=== PATIENT | female | born 1970 | race Caucasian/White ===

== ENCOUNTER 2019-07-12 05:48 | Inpatient (IN) | payer OTHER, MEDICAID ==
[2019-06-27 10:15] LABS: URINE BILIRUBIN NEGATIVE (Negative); URINE BLOOD NEGATIVE (Negative); URINE CLARITY CLEAR; URINE COLOR YELLOW; URINE GLUCOSE-RANDOM* NEGATIVE (Negative); URINE KETONES NEGATIVE (Negative); URINE LEUKOCYTES-REFLEX NEGATIVE (Negative); URINE NITRITE-REFLEX NEGATIVE (Negative); URINE PROTEIN (DIPSTICK) NEGATIVE (Negative); URINE UROBILINOGEN 0.2 E.U./dl (0.2-1.0)
[2019-06-27 10:28] LABS: HEMATOCRIT 40.4 % (37.0-47.0); HEMOGLOBIN 13.5 gm/dL (12.0-15.0); MCH 32.4 pg (26.0-34.0); MCHC 33.4 g/dL (28.0-37.0); MCV 97.1 fL (80.0-100.0); RBC 4.16 mil/uL (4.20-5.00); RDW 12.7 % (10.5-14.5); WBC 9.4 thou/uL (4.0-11.0)
[2019-06-27 10:35] LABS: ALBUMIN 3.6 g/dL (3.4-5.0); CREATININE 0.9 mg/dL (0.6-1.0)
[2019-06-27 10:38] LABS: PROTIME 9.5 Seconds (9.3-11.4)
--- NOTE | 2019-06-27 16:38 | EKG ---
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1970 Requested By: Yared Ludwig Order Number: [id number] MD: Shane Rosado Measurements Intervals [place] Rate: 78 P: 31 HI: 135 QRS: 2 QRSD: 102 T: 45 QT: 382 QTc: 436 Interpretive Statements Sinus rhythm Normal tracing Baseline wander in lead(s) II,III,aVF No previous ECG available for comparison Electronically Signed On 06-27-2019 16:37:37 [employer] by Shane Rosado [email or web address] <ELECTRONICALLY SIGNED> By: Shane Rosado MD, [facility] 06/27/19 1637 1034 1034 Shane Rosado MD, [facility] /EPI
[~2019-07-12] VITALS: Ht 162.6 cm; Wt 120.7 kg
[~2019-07-12 05:48] MED LIST: ANTI-DIARRHEAL2 MG PO; HYDROCODON-ACE1 EAC8 PO; LIPITOR 20 MG T20 M1 PO; LISINOPRIL2.5 MG PO; OMEPRAZOLE40 MG PO; SPIRIVA18 MCG INH; SYMBICORT160 MCG/4. INH; VENTOLIN HFA 1818 GM INH; VRAYLAR1.5 MG PO; XANAX1 MG PO; XANAX2 MG PO
[2019-07-12 07:30] VITALS: BP 144/84
--- NOTE | 2019-07-12 19:12 | NUR ---
ASSUMED CARE OF THE PT AT 1145. PT IS IN ALOT OF PAIN, APIN MEDS ADJUSTED, CALLED DOCTOR, SEE EMAR. PT USED BEDPAN. HEMOVAC DRAINED 350ML. R UPPER ARM IV INFILTRATED, L FOREARM IV DRY AND INTACT. PT ON 3.0L O2 NC. FALL PRECAUTIONS IN PLACE, BEDIN LOWEST POSITION AND CALL LIGHT IS WITHIN REACH. PT IS ON REG DIET. REPORT GIVEN TO NOC NURSE.
[2019-07-12 20:00] VITALS: BP 138/71
--- NOTE | 2019-07-12 20:10 | NUR ---
1900 ASSUMED CARE OF PT AFTER BEDSIDE REPORT 2000 ASSESSMENT COMPLETED, CAP REFILL IN BILAT TOES<2 SEC, WARM TO TOUCH SENSATION AND MOVEMENT INTACT PEDAL PULSES PALPABLE BILATERALLY, PT DOES NOT APPEAR ANXIOS, STATES MORPHINE IS WORKING FOR PAIN. WANTS TO REST TONIGHT AND GET UP TO BEDSIDE COMMODE FALL PRECAUTIONS IN PLACE, WILL CONTINUE TO MONITOR
[2019-07-12 21:00] VITALS: BP 120/64
[2019-07-12 22:00] VITALS: BP 109/70
[2019-07-12 23:00] VITALS: BP 120/64
[2019-07-13 01:00] VITALS: BP 134/74
[2019-07-13 04:02] VITALS: BP 136/87
[2019-07-13 06:07] LABS: HEMATOCRIT 29.8 % (37.0-47.0); MCH 32.8 pg (26.0-34.0); MCHC 33.7 g/dL (28.0-37.0); MCV 97.6 fL (80.0-100.0); RBC 3.05 mil/uL (4.20-5.00); RDW 12.3 % (10.5-14.5); WBC 12.8 thou/uL (4.0-11.0)
[2019-07-13 08:28] VITALS: BP 150/86
--- NOTE | 2019-07-13 15:53 | O ---
[facility] [place] [address] OPERATIVE REPORT Name: ANAY MCCOY Room #: 448-P ADM IN M.R.#: [id number] Admission: 07/12/19 Attend Phys: Yared Ludwig MD Discharge: Date of : 68 Report #: [id number] THIS REPORT FOR: cc: FAM - Family physician unknown FAM - Family physician unknown Yared Ludwig MD ~ CC: Yared Ludwig [facility] unknown ELLI GRAY DATE OF SERVICE: 07/12/2019 PREOPERATIVE DIAGNOSIS: Degenerative arthritis, right knee. POSTOPERATIVE DIAGNOSIS: Degenerative arthritis, right knee. PROCEDURE: Right total knee arthroplasty. SURGEON: Yared Ludwig MD INDICATIONS: This heavy, but otherwise healthy 48-year-old female has progressive bilateral knee pain, much worse on the right side. Clinical findings and x-rays reveal moderate degenerative arthritis. We discussed treatment options including medical management or injections or arthroscopic debridement, given her fairly young age. However, she states her symptoms are severe and unresponsive to conservative measures and she prefers to go ahead with total knee replacement. The patient and her understand well the treatment options and risks and benefits. DESCRIPTION OF PROCEDURE: The patient was taken to the operating room where she was placed under general anesthesia. Prophylactic intravenous antibiotics were administered. A femoral nerve block was applied. The right knee and leg were meticulously prepped and draped. A thigh tourniquet was applied and inflated to 350 mmHg. An anterior longitudinal skin incision was made extending through abundant adipose tissue and through the medial parapatellar retinaculum. The patella was reflected laterally. Moderately severe degenerative change in all 3 compartments was noted. Clinical findings were certainly greater than the x-rays might have suggested and were consistent with her rather significant and severe subjective complaints. The Poe and NephLiveTop knee system was utilized. Intramedullary guides were used on both the femur and the tibia. The femur was cut in 4 degrees of valgus. The tibia was cut perpendicular to the long axis of the bone. The patellar surface was resected. The femur was best suited for a size 3 femoral component. The tibia also was best suited for a size 3 tibial component. A trial reduction was performed. A limited medial capsule release was performed to correct mild varus malalignment. A 10 mm polyethylene insert then fit nicely. A 32 mm patellar button fit nicely. The patella seems to [address] [address] OPERATIVE REPORT Name: ANAY MCCOY Room #: 448-P [facility] IN M.R.#: [id number] Admission: 07/12/19 Attend Phys: Yared Ludwig MD Discharge: Date of : 68 Report #: [id number] track nicely and appears to be stable. The trial components were removed. The intramedullary canal was blocked with bone block on both the femoral and tibial sides. The surfaces were thoroughly irrigated and dried. Methyl methacrylate cement was mixed and injected into the porous surface of the proximal tibia. The permanent components were then brought up on to the field. A size 3 Inessa II right nonporous tibial baseplate was applied impacting this into position. It seated nicely and appeared to be secure. Excess cement was removed from around its margin. A 10 mm cruciate retaining Legion polyethylene insert was applied. This was snapped into place and seated nicely and appeared to be secure. A size 3 right cruciate retaining Legion porous femoral component was impacted on the distal femur. A small amount of cement was used at the distal femoral lugs where the bone is mildly osteopenic. This component also seated nicely and appeared to be secure. A 32 mm patellar button was cemented into place using appropriate anchor holes and cement. Excess cement was removed from around its margin. This was secured with a patellar clamp until the cement had fully hardened. Once the cement was firm, alignment, range of motion, stability and patellar tracking were once again assessed and felt to be satisfactory. The tourniquet was deflated after a total tourniquet time of 52 minutes. A single Hemovac was left in the wound exiting through a separate stab incision. The fascia was closed with multiple #1 Vicryl sutures. The abundant adipose tissues and subcutaneous tissues were closed with 0 Monocryl. The skin was closed with skin oscar. A sterile dressing was applied. The patient was awakened and returned to recovery room in good condition. <ELECTRONICALLY SIGNED> By: Yared Ludwig MD 07/13/19 1553 [id number] 0926 Yared Ludwig MD /nt
--- NOTE | 2019-07-13 17:43 | NUR ---
ASSUMED CARE OF THE PT AT 0700. PT IS VERY ANXIOUS AND HAS CRIED ALL DAY DUE TO PAIN. EXPLAINED AND EDUCATED PT ON HOW PAIN MEDS WILL BE GIVEN STARTING THIS EVENING, PT UNDERSTOOD. PT YELLS AND CRIES AND CAN BE HEARD DOWN THE HALLS, DOCTOR NOTIFIED AND AWARE. PT UNABLE TO SIT IN CHAIR AND UNABLE TO USE BSC, USES BEDPAN. PT IS RA. HEMOVAC D/C'D. MARK HOSE, ICE PACK AND L SCD IN PLACE. PT CAN TURN HERSELF, NO Q2 TURNS NEEDED. L FOREARM INTACT. FALL PRECAUTIONS IN PLACE, CALL LIGHT IS IWTHIN REACH AND BED IN THE LOWEST POSITION. WILL CONTINUE TO MONITOR THE PT.
[2019-07-13 18:58] VITALS: BP 163/95
[2019-07-13 20:10] VITALS: BP 183/83
[2019-07-13 22:30] VITALS: BP 134/78
--- NOTE | 2019-07-13 22:33 | NUR ---
1900 ASSUMED CARE OF PT AFTER BEDSIDE REPORT, 1999 BASELINE ASSESSMENT COMPLERED, PT RESTING IN BED COMPLAINING OF UNCONTROLLED PAIN, EDUCATED ON NON MEDICATION TYPES OF PAIN RELIEF SUCH MEDITATION, DISTRACTION, POSITION CHANGE, MOVEMENT. FALL PRECAUTIONS IN PLACE, PT WITH SCDS AND MARK HOSE IN PLACE, EDEMA TO BLE, PEDAL PULSES PALPABLE IN BLE, P/W/D, CAP REFILL<2 SECONDS MOVEMENT AND SENSATION INTACT BILATERALLY, PT ENCOURAGED TO USE IS COUGH AND DEEP BREATH. WILL CONTINUE WITH HOURLY ROUNDING
[2019-07-14 05:00] VITALS: BP 152/91
[2019-07-14 06:17] LABS: HEMATOCRIT 30.5 % (37.0-47.0); HEMOGLOBIN 10.3 gm/dL (12.0-15.0); MCH 32.8 pg (26.0-34.0); MCHC 33.9 g/dL (28.0-37.0); MCV 96.7 fL (80.0-100.0); RBC 3.15 mil/uL (4.20-5.00); RDW 12.6 % (10.5-14.5); WBC 12.6 thou/uL (4.0-11.0)
[2019-07-14 08:49] VITALS: BP 155/90
[2019-07-14 18:21] VITALS: BP 138/77
--- NOTE | 2019-07-14 18:41 | NUR ---
PT CARE ASSUMED AT 0700. A&Ox4. PT HAS GOTTEN OUT OF THE BED THREE TIMES TODAY WITH AIDS AND PT THE REST OF THE DAY SHE REFUSED AND INSISTED ON USING THE BED LANCE DUE TO TOO MUCH PAIN. IV PAIN MEDS HAVE BEEN DISCONTINUED AND ONLY PO MEDS ON BOARD. MARK HOSDAVID AND SCD'S IN PLACE. ICE PACK IN PLACE. +1 EDEMA ON R. LEG. FALL PROTOCOL IN PLACE. CALL LIGHT IN REACH. WILL CONTINUE TO MONITOR
[2019-07-15 04:05] VITALS: BP 120/88
[2019-07-15 06:35] LABS: HEMATOCRIT 31.8 % (37.0-47.0); MCH 32.8 pg (26.0-34.0); MCHC 34.4 g/dL (28.0-37.0); MCV 95.3 fL (80.0-100.0); RBC 3.34 mil/uL (4.20-5.00); RDW 12.9 % (10.5-14.5); WBC 9.5 thou/uL (4.0-11.0)
--- NOTE | 2019-07-15 08:18 | NUR ---
PT LYING IN BED. VOIDING PER BEDPAN. PERCOCET PROVIDING PAIN RELIEF. RESTING COMFORTABLY. NO NEEDS VOICED. CALL LIGHT WITHIN REACH. FREQUENT OBSERVATION.
[2019-07-15 08:38] VITALS: BP 130/83
[2019-07-15 17:58] VITALS: BP 117/65
[2019-07-15 20:31] VITALS: BP 115/64
[2019-07-16 04:30] VITALS: BP 100/54
[2019-07-16 08:18] VITALS: BP 116/70
--- NOTE | 2019-07-16 09:03 | NUR ---
PT LYING IN BED. VOIDING PER BEDPAN. PERCOCET PROVIDING PAIN RELIEF. RESTING COMFORTABLY. CALL LIGHT WITHIN REACH. FREQUENT OBSERVATION.
--- NOTE | 2019-07-16 09:58 | NUR ---
PT ADMITTED REALTED TO RIGHT TOTAL KNEE REPLACEMENT. CM REVIEWED CHART AND SPOKE WITH CARE TEAM. CM ATTEMPTED TO VISIT WITH PT ON TUESDAY BUT SHE HAD BEEN IN TOO MUCH PAIN TO ANSWER ASSESSMENT QUESTIONS. CM MET WITH PT AT BEDSIDE THIS DAY. PT IS A&O X4 AND ABLE TO ANSWER QUESTIONS TODAY. SHE INDICATED SHE LIVES IN AN OLD HOUSE WITH HER SPOUSE AND KIDS WITH 3 STEPS TO ENTER AND 12 STEPS TO SECOND STORY BEDROOMS. PT INDICATED SHE WILL BE STAYING ON LOWER LEVEL OF HOME. PT NEEDS FWW ISSUED FOR HOME USE. PT HAS [employer] CM TO ORDER THROUGH [employer]. 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 PT INDICATED SHE WOULD LIKE HH AT LEAST INITIALLY UPON DC. CM TO SEND REFERRALS TO FIND PROVIDER. ANTICIPATE DC HOME THIS DAY. CM TO FOLLOW INDICATED WITH DC PLANNING.
--- NOTE | 2019-07-16 14:25 | NUR ---
PT UP WALKING THE HALLS IN UNIT WITH THERAPY AT THIS TIME. PATIENT WANTS TO DISCHARGE TO HOME. CALL TO DR MOSER FROM THERAPY.
[2019-07-16 15:42] VITALS: BP 116/70
--- NOTE | 2019-07-16 15:48 | NUR ---
FAXED REFERRAL TO [facility] SPOKE TO OTF IN ADM SHE RECEIVED REFERRAL AND CAN ACCEPT AT [place].
[2019-07-16 17:56] VITALS: BP 126/64
[2019-07-16 20:30] VITALS: BP 143/69
[2019-07-17 04:15] VITALS: BP 133/83
--- NOTE | 2019-07-17 04:29 | NUR ---
ASSESSMENT COMPLETED.PT C/O PAIN ON HER R KNEE,PT REQUESTED FOR HER SCHEDULED AND PRN OXYCODONE TO BE ADMINISTERED AT THE SAME TIME,THIS NURSE EXPLAINED TO HER THAT SHE CAN ONLY GET ONE OR THE OTHER.PT NOT HAPPY WITH THAT SHE STATED THAT ALL OTHER NURSES GIVE IT TO HER LIKE THAT.PT STILL BEDPAN TO VOID,REF TO GET UP TO BSC OR BR.PT LOOKING FORWARD TO BE DC'D LATER TODAY.FALL PRECAUTIONS IN PLACE,CALL LIGHT WITHIN REACH.
[2019-07-17 08:41] VITALS: BP 116/70
--- NOTE | 2019-07-17 08:59 | NUR ---
PT CARE ASSUMED AT 0700. A&Ox4. PT BEBE DRESSING INTACT. DISCHARGE COMPLEETED. PAPERS SIGNED. SCRIPTS GIVEN TO PT. UP WITH A WALKER AND GAITBELT. FALL PROTOCOL IN PLACE CALL LIGHT IN REACH. SENT HOME WITH AND FATHER.
[2019-07-17 09:37] VITALS: BP 116/70
--- NOTE | 2019-07-17 09:45 | NUR ---
[facility] ORDERS/SUMMARY SPOKE WITH INTAKE THEY RECEIVED ORDERS AND WILL NOTIFY PT TIME OF VISITS.
--- NOTE | 2019-07-17 16:27 | NUR ---
CARE TEAM INDICATED THAT PT IS MEDICALLY STABLE TO DC HOME THIS DAY. PT WAS ISSUED A FWW FOR HOME USE BY [facility]. PT WAS SET UP WITH HH SERVICES THROUGH [facility]. NO OTHER CM INTERVENTION INDICATED. CASE CLOSED.
--- NOTE | 2019-07-19 07:54 | D ---
[facility] [place] [address] DISCHARGE SUMMARY Name: ANAY MCCOY Room #: 448-P [facility] IN M.R.#: [id number] Admission: 07/12/19 Attend Phys: Yared Ludwig MD Discharge: 07/17/19 Date of : 68 Report #: [id number] THIS REPORT FOR: cc: FAM - Family physician unknown FAM - Family physician unknown Yared Ludwig MD ~ THIS REPORT FOR: //name// CC: Yared Ludwig FAM unknown ELLI GRAY Discharge plan is 07/17/2019. FINAL DIAGNOSES: End-stage degenerative arthritis, right knee; morbid obesity; chronic pain syndrome. OPERATION PROCEDURES: Right total knee arthroplasty. HISTORY: This obese 48-year-old female has progressive right knee pain, unresponsive to various conservative measures. We discussed treatment options and elected to go ahead with total knee replacement. The patient and family understand she may have a difficult time with her rehabilitation given her size and other chronic pain syndrome. HOSPITAL COURSE: The patient was admitted and taken to the operating room on 07/12/2019. She underwent right total knee replacement, which she tolerated generally well postoperatively; however, she had rather marked discomfort, which was difficult to control despite aggressive narcotic medications. She was on both long lasting oral and short lasting oral narcotics as well as frequent IV morphine. This was gradually tapered down to a more reasonable and structure dosing level. Nevertheless, she still had significant difficulty participating with therapy due to pain and obesity and generalized weakness. She was able to resume a regular diet and resume her other routine chronic medications. Slowly she did make progress with therapy and at this point does seem sufficiently safe and stable to ambulate reasonably well, independently using a walker for protection. We have discussed on multiple occasions the option of either extended care facility or discharge home with assistance from visiting therapy and family. At this point, she seems safe to go home and is anxious to proceed with that plan. She has already made arrangements for transportation home on 07/17/2019. She has made arrangements for some assistance at home through Family or friends. We will also make plans for home visiting therapy and assistance as needed. She will continue with a walker for balance and safety. She will continue with a regular diet at home. DISCHARGE MEDICATIONS: Include Symbicort 2 puffs b.i.d., albuterol 2 puffs p.r.n., Spiriva 18 mcg daily, Xanax 1 mg b.i.d., omeprazole 40 mg daily, [address] [address] DISCHARGE SUMMARY Name: ANAY MCCOY Room #: 448-P DIS IN M.R.#: [id number] Admission: 07/12/19 Attend Phys: Yared Ludwig MD Discharge: 07/17/19 Date of : 68 Report #: [id number] loperamide 2 mg p.r.n. for diarrhea, Lipitor 20 mg daily, lisinopril 2.5 mg daily, OxyContin 40 mg twice daily, oxycodone 10 mg q.4-6 hours p.r.n. for breakthrough pain, Xarelto 10 mg daily. She will continue to work on range of motion activity and ambulation as comfort and strength will allow. I have encouraged her to be very careful at home to avoid stairs or other situations where she might fall. I have asked her to call me if any problems or questions. I will otherwise plan to see her back in my office for followup in 1 week for suture removal. <ELECTRONICALLY SIGNED> By: Yared Ludwig MD 07/19/19 0754 1701 1841 Yared Ludwig MD /nt
== END 2019-07-17 09:34 | disposition home health service (06) | DRG 470 ==
LOC: OR 05:48 → TBA 05:48 → OR 07:08 → PRE 09:20 → OR 11:01 → 4S 11:01 → PRE 11:09 → EDSTATUS 15:48 → OR 15:49 → ENTRNSPT 07-17 08:47 → EDTRNSPTSTS 07-17 08:51 → 4S 07-17 09:34
PROVIDERS: ADMIT Orthopaedic Surgery
PROC: 3E0T3BZ Introduction of Anesthetic Agent into Peripheral Nerves and Plexi, Percutaneous Approach (ICD-10-PCS; principal; 2019-07-12)
PROC: 0SRC0J9 Replacement of Right Knee Joint with Synthetic Substitute, Cemented, Open Approach (ICD-10-PCS; principal; 2019-07-12)
DX: M17.11 Unilateral primary osteoarthritis, right knee (principal); Z68.42 Body mass index [BMI] 45.0-49.9, adult; D62 Acute posthemorrhagic anemia; E66.01 Morbid (severe) obesity due to excess calories; G89.4 Chronic pain syndrome; F41.9 Anxiety disorder, unspecified; F31.9 Bipolar disorder, unspecified; J44.9 Chronic obstructive pulmonary disease, unspecified; K21.9 Gastro-esophageal reflux disease without esophagitis; I10 Essential (primary) hypertension; E78.00 Pure hypercholesterolemia, unspecified; G43.909 Migraine, unspecified, not intractable, without status migrainosus; E78.5 Hyperlipidemia, unspecified; Z79.899 Other long term (current) drug therapy; Z88.6 Allergy status to analgesic agent; Z79.51 Long term (current) use of inhaled steroids
CPT/HCPCS: 10102; 50010; 50101; 50415; 50954; 51130; 51225; 51412; 53364; 56525; 57095; 57104; 57181; 64039; 64043; 70005